=== PATIENT | female | born 1935 | race Caucasian/White ===

== ENCOUNTER → 2016-10-03 | Outpatient (CLI) | payer MEDICARE, BC ==
--- NOTE | 2016-10-03 19:43 | HKNOTE ---
DATE OF SERVICE: 10/03/2016 INTERVAL HISTORY: The patient presents today for her first postoperative evaluation. She is almost 2 weeks status post right hemiarthroplasty. She is doing well overall. She is at the [facility] facility currently. The patient is progressing nicely with physical therapy there. She states her hip pain is improving and really only has nighttime symptoms. She is on appropriate DVT prophylaxis. She is ambulating and doing therapy daily. She presents today for her first postoperative evaluation. PHYSICAL EXAMINATION: Today, she is alert and oriented x4 and in no acute distress. of the incision demonstrates to be clean, dry and intact. [place] are in place. There is no erythema, warmth pus or drainage noted. She has mild pain with passive range of motion of the hip joint. Straight leg raise is intact. Compartments are soft. Homans sign is negative. She is neurovascularly intact distally. IMAGING: X-rays were done from outside facility are reviewed by me today. They demonstrate good alignment of the bipolar hemiarthroplasty. No acute fracture or dislocation identified. ASSESSMENT: Almost 2 weeks status post right bipolar hemiarthroplasty, doing well. PLAN: The tegan were removed today and Steri-Strips were applied. She is to continue appropriate DVT prophylaxis. Additionally, she is to continue physical therapy at the [facility]. She is to continue weightbearing as tolerated on the surgical lower extremity. We will see her back in 4 weeks for repeat evaluation. The patient is to call the office any time she has any concerns. Dictated By: SCARLET ARRIAZA for TODD GRIGSBY/STEPHEN Conf#: [id number] DID#: [id number]
== END | disposition home or self-care (01) ==
LOC: HKI 09:38
PROVIDERS: ATTEND Orthopaedic Surgery
DX: Z47.1 Aftercare following joint replacement surgery (principal); Z96.641 Presence of right artificial hip joint

== ENCOUNTER → 2016-10-31 | Outpatient (CLI) | payer MEDICARE, BC ==
--- NOTE | 2016-10-31 12:41 | RADRPT ---
PROCEDURE: XR pelvis/right hip. CLINICAL INDICATION: Hip pain TECHNIQUE: AP pelvis/AP and lateral right hip views performed. COMPARISON: No prior studies are available for comparison. FINDINGS: There is a right hip hemiarthroplasty. There is no evidence of loosening of the prosthesis. No hardw are failure is identified. There is moderate left hip osteoarthrosis. This is associated with joint space narrowing, subchondra l sclerosis, subchondral cyst formation and osteophytosis. There is normal osseous mineralization. No fractures or osseous lesions are identified. The soft tissues are unremarkable. IMPRESSION: Right hip hemiarthroplasty Moderate left hip osteoarthrosis. RPTAT: HGDB .Jerry Blair MD, MD Date Time Electronically viewed and signed by .Jerry Blair MD, on 10/31/2016 12:40 .B/
== END | disposition home or self-care (01) ==
LOC: HKI 10:29
PROVIDERS: ATTEND Orthopaedic Surgery
DX: M16.12 Unilateral primary osteoarthritis, left hip (principal); Z96.641 Presence of right artificial hip joint
CPT/HCPCS: 73502

== ENCOUNTER → 2017-01-16 | Outpatient (CLI) | payer MEDICARE, BC ==
--- NOTE | 2017-01-16 15:51 | RADRPT ---
PROCEDURE: XR Right hip and pelvis. CLINICAL INDICATION: Right hip pain. Pelvic pain. Postop. TECHNIQUE: Three views. Frontal pelvis. Frontal and lateral right hip. COMPARISON: 10/31/2016. FINDINGS: There is no fracture or dislocation. The soft tissues are normal. There is a right hip hemiarthroplasty which appears satisfactory. There are moderate degenerative changes of the left hip with joint space narrowing and osteophytes. There is no lytic or blastic lesion. The upper pelvis is not completely included on the image. IMPRESSION: 1. Satisfactory postoperative appearance of the right hip. 2. Moderate osteoarthrosis of the left hip. RPTAT: QQ .Angus Franklin MD, MD Date Time Electronically viewed and signed by .Angus Franklin MD, on 01/16/2017 15:51 .R/
== END | disposition home or self-care (01) ==
LOC: HKI 10:56
PROVIDERS: ATTEND Orthopaedic Surgery
DX: Z47.89 Encounter for other orthopedic aftercare (principal); Z96.641 Presence of right artificial hip joint
CPT/HCPCS: 73502; G0463